=== PATIENT | female | born 1990 | race Caucasian/White ===

== ENCOUNTER 2018-07-31 20:52 | Inpatient (IN) | payer OTHER ==
[2018-07-31] MEDS: SOD CHLORIDE 0.9% 1,000 ML IV (21:23)
[2018-07-31 21:25] LABS: ADD MAN DIFF? NO
[2018-07-31 21:29] LABS: WHITE BLOOD COUNT 7.7 10^3/ul (4.8-10.8)
[2018-07-31 21:29] LABS: BASOPHILS % 0.5 % (0.0-2.0); EOSINOPHILS # 0.2 10^3/ul (0.0-0.5); EOSINOPHILS % 2.2 % (0.0-7.0); HEMATOCRIT 24.3 % (37.0-47.0); HEMOGLOBIN 7.7 g/dl (12.0-16.0); LYMPHOCYTES # 1.9 10^3/ul (0.8-2.9); MEAN CORPUSCULAR HEMOGLOBIN 30.7 pg (29.0-33.0); MEAN CORPUSCULAR HGB CONC 31.7 g/dl (32.0-37.0); MEAN CORPUSCULAR VOLUME 96.8 fl (82.0-101.0); MEAN PLATELET VOLUME 8.5 fl (7.4-10.4); MONOCYTE # 0.6 10^3/ul (0.3-0.9); MONOCYTES % 7.6 % (0.0-11.0); NEUTROPHIL # 4.9 10^3/ul (1.6-7.5); NUCLEATED RED BLOOD CELLS% 0.5 /100WBC (0.0-0.0); PLATELET COUNT 501 10^3/UL (140-415); RED BLOOD COUNT 2.51 10^6/ul (4.20-5.40); RED CELL DISTRIBUTION WIDTH 13.1 % (11.5-14.5)
[2018-07-31 21:48] LABS: PROTIME 13.3 Sec (11.9-14.9)
[2018-07-31 21:49] LABS: PARTIAL THROMBOPLASTIN TIME 23.4 Sec (23.0-35.0)
[2018-07-31 21:50] LABS: ALANINE AMINOTRANSFERASE 24 IU/L (13-69); ALBUMIN 3.6 g/dl (3.3-4.9); ALBUMIN/GLOBULIN RATIO 0.94; ALKALINE PHOSPHATASE 89 IU/L (42-121); ANION GAP 12 (5-13); ASPARTATE AMINO TRANSFERASE 28 IU/L (15-46); BLOOD UREA NITROGEN 5 mg/dl (7-20); CALCIUM 9.5 mg/dl (8.4-10.2); CARBON DIOXIDE 24 mmol/L (21-31); CHLORIDE 106 mmol/L (97-110); Estimated GFR > 60 mL/min (>60); GLUCOSE 117 mg/dl (70-220); POTASSIUM 3.4 mmol/L (3.5-5.1); SODIUM 142 mmol/L (135-144); TOTAL PROTEIN 7.4 g/dl (6.1-8.1)
[2018-07-31] MEDS: POTASSIUM CHLORIDE (SR) 20 MEQ TAB PO (23:13)
[2018-07-31] MEDS ORDERED: ACETAMINOPHEN 325 MG TAB PO (23:30)
[2018-07-31] MEDS ORDERED: ONDANSETRON 4 MG INJ IV (23:30)
[2018-08-01 00:23] LABS: IMMEDIATE SPIN CROSSMATCH 1 2
[2018-08-01] MEDS: SOD CHLORIDE 0.9% 250 ML IV (00:36)
[2018-08-01 01:13] LABS: ADD UMIC YES; UR ASCORBIC ACID NEGATIVE (NEGATIVE); UR BACTERIA FEW /HPF (NONE SEEN); UR BILIRUBIN (Dip) NEGATIVE (NEGATIVE); UR BLOOD (Dip) 3+ mg/dL (NEGATIVE); UR CLARITY SLIGHTLY CLOUDY (CLEAR); UR COLOR STRAW (YELLOW); UR GLUCOSE (Dip) NEGATIVE (NEGATIVE); UR KETONES (Dip) NEGATIVE (NEGATIVE); UR LEUKOCYTE ESTERASE (Dip) 1+ Leu/ul (NEGATIVE); UR NITRITE (Dip) NEGATIVE (NEGATIVE); UR RBC > 182 /HPF (0-5); UR SPECIFIC GRAVITY (Dip) 1.009 (1.003-1.030); UR TOTAL PROTEIN (Dip) NEGATIVE (NEGATIVE); UR UROBILINOGEN (Dip) NEGATIVE (NEGATIVE); UR WBC 30 /HPF (0-5)
[2018-08-01] MEDS ORDERED: OXYTOCIN 30 UNITS/LR 500 ML IV (02:00)
[2018-08-01] MEDS ORDERED: ONDANSETRON 4 MG INJ IV ×2 (02:00→18:00)
[2018-08-01] MEDS: LACTATED RINGER'S 1,000 ML IV ×3 (06:31→20:09)
[2018-08-01] MEDS ORDERED: CEFAZOLIN 1 GM INJ (07:00)
[2018-08-01] MEDS ORDERED: SUCCINYLCHOLINE CHLORIDE 100 MG/5 ML SYG IV (07:00)
[2018-08-01] MEDS: OXYTOCIN 30 UNITS/LR 500 ML IV ×2 (07:03→13:35)
[2018-08-01 07:28] LABS: ADD MAN DIFF? NO
[2018-08-01 07:31] LABS: BASOPHILS % 0.4 % (0.0-2.0); EOSINOPHILS # 0.1 10^3/ul (0.0-0.5); HEMATOCRIT 28.6 % (37.0-47.0); HEMOGLOBIN 9.3 g/dl (12.0-16.0); LYMPHOCYTES # 1.9 10^3/ul (0.8-2.9); LYMPHOCYTES % 20.1 % (15.0-51.0); MEAN CORPUSCULAR HEMOGLOBIN 30.3 pg (29.0-33.0); MEAN CORPUSCULAR HGB CONC 32.5 g/dl (32.0-37.0); MEAN CORPUSCULAR VOLUME 93.2 fl (82.0-101.0); MEAN PLATELET VOLUME 8.8 fl (7.4-10.4); MONOCYTE # 0.7 10^3/ul (0.3-0.9); MONOCYTES % 7.7 % (0.0-11.0); NEUTROPHIL # 6.5 10^3/ul (1.6-7.5); NEUTROPHILS % 70.2 % (39.0-77.0); NUCLEATED RED BLOOD CELLS% 0.4 /100WBC (0.0-0.0); PLATELET COUNT 408 10^3/UL (140-415); RED BLOOD COUNT 3.07 10^6/ul (4.20-5.40); RED CELL DISTRIBUTION WIDTH 14.6 % (11.5-14.5)
[2018-08-01 07:31] LABS: WHITE BLOOD COUNT 9.3 10^3/ul (4.8-10.8)
[2018-08-01] MEDS: METHYLERGONOVINE 0.2 MG INJ IM ×4 (09:47→23:00)
[2018-08-01] MEDS ORDERED: CEFAZOLIN 2 GM/50 ML (PMX) 50 ML IVPB (16:30)
[2018-08-01] MEDS ORDERED: ONDANSETRON 4 MG INJ (17:46)
[2018-08-01] MEDS ORDERED: PROPOFOL 100 ML (17:46)
[2018-08-01] MEDS ORDERED: FENTAnyl 50 MCG/ML VIAL (17:46)
[2018-08-01] MEDS ORDERED: LIDOCAINE 100 MG SYRINGE (17:46)
[2018-08-01] MEDS ORDERED: DEXAMETHASONE 4 MG/ML 1 ML INJ (17:46)
[2018-08-01] MEDS ORDERED: MIDAZOLAM 1 MG/ML 2 ML INJ (17:46)
[2018-08-01] MEDS ORDERED: FENTAnyl 50 MCG/ML VIAL IV ×2 (18:00)
[2018-08-01] MEDS ORDERED: hydrALAzine 20 MG INJ IV (18:00)
[2018-08-01] MEDS ORDERED: LABETALOL HCL 20MG INJ IV (18:00)
[2018-08-01] MEDS ORDERED: HYDROmorphONE 1 MG/5 ML IV SYRINGE IV ×2 (18:00)
[2018-08-01] MEDS ORDERED: MEPERIDINE 25 MG INJ IV (18:00)
[2018-08-01] MEDS ORDERED: METOCLOPRAMIDE 10 MG INJ IV (18:00)
[2018-08-01] MEDS: MISOPROSTOL 200 MCG TAB PO (19:39)
[2018-08-01] MEDS: PIPER-TAZO 3.375 GM IV (PMX) 100 ML IVPB (22:47)
[2018-08-02] MEDS: PIPER-TAZO 3.375 GM IV (PMX) 100 ML IVPB ×2 (06:52→15:02)
[2018-08-02] MEDS: LACTATED RINGER'S 1,000 ML IV (06:53)
[2018-08-02] MEDS: METHYLERGONOVINE 0.2 MG INJ IM ×2 (06:55→15:03)
== END 2018-08-02 16:40 | disposition home or self-care (01) | DRG 770 ==
LOC: 2NE 23:30 → E/R 20:52
PROVIDERS: Pediatrics Neonatal-Perinatal Medicine
PROC: 10D17ZZ Extraction of Products of Conception, Retained, Via Natural or Artificial Opening (ICD-10-PCS; principal; 2018-08-01 18:00)
PROC: 30233N1 Transfusion of Nonautologous Red Blood Cells into Peripheral Vein, Percutaneous Approach (ICD-10-PCS; 2018-08-01 18:17)
DX: O03.1 Delayed or excessive hemorrhage following incomplete spontaneous abortion (principal); D62 Acute posthemorrhagic anemia; F17.200 Nicotine dependence, unspecified, uncomplicated
CPT/HCPCS: 36415; 36430; 76801; 76817; 80053; 81001; 84702; 85025; 85610; 85730; 86850; 86900; 86901; 86920; 88305; 96360; 96361; 99291-25